=== PATIENT | male | born 1945 | race Caucasian/White ===

== ENCOUNTER 2024-12-26 16:53 | Inpatient (IN) | payer MEDICARE ==
[2024-12-26 18:27] VITALS: BMI 34.9
[2024-12-26] MEDS ORDERED: Melatonin 3 MG TAB PO PRN (18:44)
[2024-12-26] MEDS ORDERED: Acetaminophen 325 MG TAB PO PRN (18:44)
[2024-12-26] MEDS ORDERED: Senokot S 8.6-50 MG TAB PO PRN (18:44)
[2024-12-26] MEDS ORDERED: Ondansetron PF 4 MG/2 ML Vial IVP PRN (18:44)
[2024-12-26] MEDS ORDERED: Calcium Carbonate 500 MG ChewTAB PO PRN (18:44)
[2024-12-26] MEDS ORDERED: Ibuprofen 800 MG TAB PO PRN (21:23)
[2024-12-26] MEDS: Colchicine 0.6 MG TAB PO SCH (23:11)
[2024-12-27 05:01] LABS: #Basophils 0.03 10x3/uL (0.0-0.2); #Eosinophils 0.11 10x3/uL (0.0-0.7); #Monocytes 1.35 10x3/uL (0.11-0.59); #Neutrophils 10.88 10x3/uL (1.40-6.50); %Basophils 0.2 % (0.0-1.0); %Eosinophils 0.8 % (0.0-10.0); %Lymphocytes 9.8 % (21.0-51.0); %Monocytes 9.8 % (0.0-10.0); %Neutrophils 78.7 % (42.0-75.0); Hematocrit 36.2 % (42.0-52.0); Hemoglobin 11.4 g/dL (14.0-18.0); Mean Corpuscular Hemoglobin 30.3 pg (27.0-31.0); Mean Corpuscular Volume 96.3 fL (78.0-98.0); Platelet Count 342 10x3/uL (130-400); Red Blood Cell (RBC) Count 3.76 mill/uL (4.70-6.10); White Blood Cell (WBC) Count 13.81 10x3/uL (4.8-10.8)
[2024-12-27 05:47] LABS: ALT (SGPT) 46 U/L (Less than 45); AST (SGOT) 27 U/L (11-34); Albumin 2.9 g/dL (3.1-4.5); Alkaline Phosphatase 128 U/L (40-110); Anion Gap 15 mmol/L (10-20); BUN (Urea Nitrogen) 15 mg/dL (8.4-25.7); Bilirubin, Total 1.2 mg/dL (0.3-1.2); Calc. Creatinine Clearance 127 mL/min (70-130); Calcium 8.9 mg/dL (7.8-10.44); Carbon Dioxide 24 mmol/L (23-31); Chloride 103 mmol/L (98-107); Globulin 4.1 g/dL (2.4-3.5); Glucose 122 mg/dL (83-110); Potassium 4.3 mmol/L (3.5-5.1); Sodium 138 mmol/L (136-145)
[2024-12-27] MEDS ORDERED: fentaNYL PF 100 MCG/2 ML SYRINGE ONE ×2 (07:46→08:23)
[2024-12-27] MEDS ORDERED: Etomidate 40 MG (20 mL) VIAL ONE (07:46)
[2024-12-27] MEDS ORDERED: SUCCINYLCHOLINE/SOD CL,ISO/PF 200 MG/10 ML SYRINGE FS ONE (07:47)
[2024-12-27] MEDS ORDERED: CEFAZOLIN 2 GM VIAL ONE (08:00)
[2024-12-27] MEDS ORDERED: Rocuronium Bromide 10 MG/ML (10ML VIAL) ONE (08:15)
[2024-12-27] MEDS ORDERED: Lidocaine 1% PF 5 ML VIAL ONE (08:15)
[2024-12-27] MEDS ORDERED: SUGAMMADEX SODIUM 200 MG/2 ML VIAL ONE (08:24)
[2024-12-27] MEDS ORDERED: Ondansetron PF 4 MG/2 ML Vial ONE (08:33)
[2024-12-27] MEDS ORDERED: HYDROcodone/Acetaminophen 5/325 mg Tablet PO PRN (09:00)
[2024-12-27] MEDS: Colchicine 0.6 MG TAB PO SCH (12:53)
[2024-12-27] MEDS: Famotidine 20 MG TAB PO SCH (12:53)
[2024-12-27] MEDS: Ketorolac Tromethamine 30 MG (1 mL) VIAL IVP SCH (12:53)
[2024-12-28] MEDS ORDERED: Artificial Tear Ophth Sol 15 ML BOT EA EYE PRN (06:24)
[2024-12-28] MEDS ORDERED: Sodium Chloride 0.65% Nasal 44 ML BOT EA NARE PRN (06:24)
[2024-12-28] MEDS: GUAIFENESIN SF SOLN 200 MG/10 ML UDCUP PO PRN (06:52)
[2024-12-28 09:34] LABS: #Basophils 0.04 10x3/uL (0.0-0.2); #Eosinophils 0.15 10x3/uL (0.0-0.7); #Monocytes 1.08 10x3/uL (0.11-0.59); #Neutrophils 10.49 10x3/uL (1.40-6.50); %Basophils 0.3 % (0.0-1.0); %Eosinophils 1.1 % (0.0-10.0); %Lymphocytes 10.8 % (21.0-51.0); %Monocytes 8.1 % (0.0-10.0); %Neutrophils 79.1 % (42.0-75.0); Hematocrit 36.9 % (42.0-52.0); Hemoglobin 11.7 g/dL (14.0-18.0); Mean Corpuscular Hemoglobin 30.5 pg (27.0-31.0); Mean Corpuscular Volume 96.3 fL (78.0-98.0); Platelet Count 344 10x3/uL (130-400); Red Blood Cell (RBC) Count 3.83 mill/uL (4.70-6.10); White Blood Cell (WBC) Count 13.28 10x3/uL (4.8-10.8)
[2024-12-28 10:10] LABS: ALT (SGPT) 37 U/L (Less than 45); AST (SGOT) 28 U/L (11-34); Albumin 2.6 g/dL (3.1-4.5); Alkaline Phosphatase 112 U/L (40-110); Anion Gap 14 mmol/L (10-20); BUN (Urea Nitrogen) 14 mg/dL (8.4-25.7); Bilirubin, Total 0.6 mg/dL (0.3-1.2); Calc. Creatinine Clearance 140 mL/min (70-130); Calcium 8.6 mg/dL (7.8-10.44); Carbon Dioxide 24 mmol/L (23-31); Chloride 106 mmol/L (98-107); Globulin 3.6 g/dL (2.4-3.5); Glucose 115 mg/dL (83-110); Magnesium 2.2 mg/dL (1.6-2.6); Potassium 4.2 mmol/L (3.5-5.1); Sodium 140 mmol/L (136-145)
[2024-12-28] MEDS: PNEUMOC 20-VAL CONJ-DIP CRM/PF 0.5 ML SYRINGE IM ONE (18:31)
[2024-12-28 23:56] VITALS: BMI 34.9
[2024-12-29 05:08] LABS: #Basophils 0.04 10x3/uL (0.0-0.2); #Eosinophils 0.23 10x3/uL (0.0-0.7); #Monocytes 1.07 10x3/uL (0.11-0.59); #Neutrophils 7.09 10x3/uL (1.40-6.50); %Basophils 0.4 % (0.0-1.0); %Eosinophils 2.3 % (0.0-10.0); %Lymphocytes 16.5 % (21.0-51.0); %Monocytes 10.5 % (0.0-10.0); %Neutrophils 69.7 % (42.0-75.0); Hematocrit 36.3 % (42.0-52.0); Hemoglobin 11.6 g/dL (14.0-18.0); Mean Corpuscular Hemoglobin 30.7 pg (27.0-31.0); Mean Corpuscular Volume 96.0 fL (78.0-98.0); Platelet Count 371 10x3/uL (130-400); Red Blood Cell (RBC) Count 3.78 mill/uL (4.70-6.10); White Blood Cell (WBC) Count 10.17 10x3/uL (4.8-10.8)
[2024-12-29 05:45] LABS: ALT (SGPT) 39 U/L (Less than 45); AST (SGOT) 26 U/L (11-34); Albumin 2.5 g/dL (3.1-4.5); Alkaline Phosphatase 107 U/L (40-110); Anion Gap 13 mmol/L (10-20); BUN (Urea Nitrogen) 13 mg/dL (8.4-25.7); Bilirubin, Total 0.6 mg/dL (0.3-1.2); Calc. Creatinine Clearance 126 mL/min (70-130); Calcium 8.4 mg/dL (7.8-10.44); Carbon Dioxide 26 mmol/L (23-31); Chloride 105 mmol/L (98-107); Globulin 3.6 g/dL (2.4-3.5); Glucose 95 mg/dL (83-110); Magnesium 2.0 mg/dL (1.6-2.6); Potassium 3.9 mmol/L (3.5-5.1); Sodium 140 mmol/L (136-145)
[2024-12-29] MEDS: Magnesium 2 GM/50 ML(in water) 2 GM in Premix 1 BAG IVPB SCH (09:36)
[2024-12-29 15:46] VITALS: BP 140/88; TEMP 98.3
== END 2024-12-29 18:57 | disposition home or self-care (01) | DRG 272 ==
LOC: 2NO 16:53
PROVIDERS: ADMIT Family Medicine; ATTEND Family Medicine
PROC: 3E03329 Introduction of Other Anti-infective into Peripheral Vein, Percutaneous Approach (ICD-10-PCS; 2024-12-26)
PROC: 0W9D00Z Drainage of Pericardial Cavity with Drainage Device, Open Approach (ICD-10-PCS; principal; 2024-12-27)
PROC: 3E0234Z Introduction of Serum, Toxoid and Vaccine into Muscle, Percutaneous Approach (ICD-10-PCS; 2024-12-28)
DX: I30.9 Acute pericarditis, unspecified (principal); E66.812 Obesity, class 2; M19.90 Unspecified osteoarthritis, unspecified site; Z68.35 Body mass index [BMI] 35.0-35.9, adult; Z79.899 Other long term (current) drug therapy; Z88.2 Allergy status to sulfonamides; Z86.16 Personal history of COVID-19; Z98.1 Arthrodesis status; Z23 Encounter for immunization
CPT/HCPCS: 36415; 71045; 71250; 80053; 82550; 82805; 83605; 83735; 83880; 84484; 85025; 87070; 87076; 87205; 87426; 88112; 88305; 88341; 88342; 93005; 93306; 94640; J0169; J0665; J1100; J1885; J3475

== ENCOUNTER 2025-01-13 11:17 | Outpatient (CLI) | payer MEDICARE | END 2025-01-13 11:18 | disposition home or self-care (01) | LOC: RAD 11:17 | PROVIDERS: ATTEND Student in an Organized Health Care Education/Training Program | DX: I31.9 Disease of pericardium, unspecified (principal) | CPT/HCPCS: 71046 ==